=== PATIENT | male | born 1995 | race Caucasian/White ===

== ENCOUNTER 2017-01-14 15:50 | Emergency (ER) | payer OTHER | END 2017-01-14 17:29 | disposition home or self-care (01) | LOC: FER 15:50 | DX: S93.402A Sprain of unspecified ligament of left ankle, initial encounter (principal); Z88.1 Allergy status to other antibiotic agents; X50.0XXA Overexertion from strenuous movement or load, initial encounter; Y92.009 Unspecified place in unspecified non-institutional (private) residence as the place of occurrence of the external cause | CPT/HCPCS: 73610; 99283 ==

== ENCOUNTER 2021-04-15 18:43 | Emergency (ER) | payer OTHER ==
[2021-04-15] MEDS ORDERED: ILOTYCIN1 GM EYELF (20:19)
== END 2021-04-15 20:50 | disposition home or self-care (01) ==
LOC: FER 18:43
DX: S05.02XA Injury of conjunctiva and corneal abrasion without foreign body, left eye, initial encounter (principal); J45.909 Unspecified asthma, uncomplicated; F17.200 Nicotine dependence, unspecified, uncomplicated; Z88.1 Allergy status to other antibiotic agents; X58.XXXA Exposure to other specified factors, initial encounter
CPT/HCPCS: 99283

== ENCOUNTER 2022-06-16 21:43 | Emergency (ER) | payer OTHER ==
[~2022-06-16 21:43] MED LIST: ILOTYCIN1 GM EYELF
== END 2022-06-16 23:28 | disposition home or self-care (01) ==
LOC: FER 21:43
DX: K08.89 Other specified disorders of teeth and supporting structures (principal); F17.200 Nicotine dependence, unspecified, uncomplicated; Z88.1 Allergy status to other antibiotic agents
CPT/HCPCS: J1885; Q0163